=== PATIENT | male | born 1995 | race African-American/Black ===

== ENCOUNTER 2018-06-13 13:17 | Emergency (ER) | payer MEDICAID, OTHER ==
[~2018-06-13] VITALS: Ht 190.5 cm; Wt 142.9 kg
[2018-06-13 16:01] VITALS: BP 173/83
== END 2018-06-13 17:06 | disposition home or self-care (01) ==
LOC: ER 13:17
DX: J03.90 Acute tonsillitis, unspecified (principal); R51 Headache
CPT/HCPCS: 71045